=== PATIENT | female | born 1970 | race Caucasian/White ===

== ENCOUNTER → 2022-02-08 | Outpatient (CLI) | payer BC ==
--- NOTE | 2022-02-09 07:29 | CT ---
EXAMINATION TYPE: CT urogram wo/w con DATE OF EXAM: 02/08/2022 HISTORY: Micro Hematuria, pain CT DLP: 1613.9mGycm Automated Exposure Control for Dose Reduction was Utilized. CONTRAST: CT scan of the abdomen and pelvis is performed without oral and without and with IV Contrast, patient injected with 100ml mL of Isovue 300. Urogram protocol with 3-D reconstructed images created on an [employer] workstation and reviewed. COMPARISON: None. FINDINGS: KUB: Noncontrast images show no renal calculi bilaterally. Postcontrast images show symmetric cortic al medullary uptake and excretion without hydronephrosis seen bilaterally. There is a simple appearin g 2.5 x 2.2 cm thin-walled cyst medially in the left kidney mid to lower pole level series 8 image 36 . There is satisfactory opacification of bilateral ureters without obstructing mass or calculus. Urin lilian bladder shows no intraluminal calculus, suspicious mass, or abnormal wall thickening. LUNG BASES: No significant abnormality is appreciated. LIVER/GB: Prominent right hepatic lobe. PANCREAS: No significant abnormality is seen. SPLEEN: No significant abnormality is seen. ADRENALS: No significant abnormality is seen. BOWEL: Slightly suboptimal in evaluation without enteric contrast. Surgical sutures in the colon at l evel right pelvis. Additional surgical sutures in sigmoid rectal colon in the left pelvis. No suspici ous small or large bowel dilatation is seen UTERUS/ADNEXA: Uterus surgically absent or markedly atrophic. LYMPH NODES: No greater than 1cm abdominal or pelvic lymph nodes are appreciated. OSSEOUS STRUCTURES: Slight scoliotic curvature. Moderate axial joint space loss and acetabular spurri ng of both hips. OTHER: Mild to moderate peripheral plaque of the aorta extends into branch vessels. IMPRESSION: 1. No significant finding is seen to account for patient's clinical symptoms of microhematuria.
== END | disposition home or self-care (01) ==
LOC: RADCTMAIN 15:42
PROVIDERS: ATTEND Urology
DX: R31.29 Other microscopic hematuria (principal)
CPT/HCPCS: 74178; 74400; Q9967

== ENCOUNTER → 2024-04-01 | Outpatient (CLI) | payer BC ==
--- NOTE | 2024-04-04 13:53 | MM ---
Reason for Exam: Screening (asymptomatic). Patient History: Menarche at age 14. First Full-Term at age 19. Left ovary removed at age 41. Hysterectomy at age 41. Postmenopausal. 07/2022, US breast aspiration single RT on the Right side. Risk Values: Mell 5 year model risk: 0.7%. NCI Lifetime model risk: 5.6%. Prior Study Comparison: No prior studies available for comparison. Tissue Density: There are scattered areas of fibroglandular density. Findings: Analyzed By CAD. Right breast: There is no suspicious group of microcalcifications or new suspicious mass. Left breast: There is no suspicious group of microcalcifications or new suspicious mass. Overall Assessment: Negative, BI-RAD 1 Management: Screening Mammogram of both breasts in [address] [facility] will attempt to contact patient to return for supplemental views and ultrasound if indicated. Patient should continue monthly self-breast exams. A clinical breast exam by your physician is recommended on an annual basis. This exam should not preclude additional follow-up of suspicious palpable abnormalities. Note on Mell scores and lifetime risk: 1. A Mell score greater than 3% is considered moderate risk. If this is the case, consider specialist referral to assess eligibility for a risk reducing agent. 2. If overall lifetime risk for the development of breast cancer is 20% or higher, the patient may qualify for future screening with alternating mammogram and breast MRI. Electronically signed and approved by: Aldo Soto DO
== END | disposition home or self-care (01) ==
LOC: RADMAMWWP 08:54
PROVIDERS: ATTEND Family Medicine
DX: Z12.31 Encounter for screening mammogram for malignant neoplasm of breast (principal); Z78.0 Asymptomatic menopausal state
CPT/HCPCS: 77063; 77067